=== PATIENT | male | born 1970 | race Hispanic/Latino ===

== ENCOUNTER 2024-04-26 09:51 | Day surgery (SDC) | payer OTHER ==
[2024-04-21 08:23] VITALS: BMI 25.1
[2024-04-26] MEDS ORDERED: PROPOFOL 20 ML ONE (11:22)
[2024-04-26] MEDS ORDERED: fentaNYL 50 mcg/mL 1 mL Vial ONE ×4 (11:25→13:57)
[2024-04-26] MEDS ORDERED: Midazolam HCl 2 mg/2 ml Vial ONE (12:20)
[2024-04-26] MEDS ORDERED: Acetaminophen 500 MG TAB ONE (12:21)
[2024-04-26] MEDS ORDERED: CEFAZOLIN 2 GM VIAL ONE (12:29)
[2024-04-26] MEDS ORDERED: Bupivacaine/Epinephrine 0.25% 30 ML VIAL ONE (12:29)
[2024-04-26] MEDS ORDERED: Esmolol 100 MG/10 ML VIAL ONE (12:53)
[2024-04-26] MEDS ORDERED: Dexamethasone 4 mg/ml Vial ONE (12:58)
[2024-04-26] MEDS ORDERED: PHENYLEPHRINE-NS 100 MCG/ML 10 ML SYRINGE ONE ×2 (13:03→13:17)
[2024-04-26] MEDS ORDERED: ePHEDrine Sulfate 50 MG/10 ML VIAL ONE (13:04)
[2024-04-26] MEDS ORDERED: Ondansetron PF 4 MG/2 ML Vial ONE (13:21)
[2024-04-26] MEDS ORDERED: SUGAMMADEX SODIUM 200 MG/2 ML VIAL ONE (13:23)
== END 2024-04-26 14:50 | disposition home or self-care (01) ==
LOC: CSHSDC 09:51
PROVIDERS: ATTEND Surgery
PROC: 0YU64JZ Supplement Left Inguinal Region with Synthetic Substitute, Percutaneous Endoscopic Approach (ICD-10-PCS; principal; 2024-04-26)
DX: K40.90 Unilateral inguinal hernia, without obstruction or gangrene, not specified as recurrent (principal); G43.909 Migraine, unspecified, not intractable, without status migrainosus; I10 Essential (primary) hypertension; Z79.899 Other long term (current) drug therapy; F17.200 Nicotine dependence, unspecified, uncomplicated
CPT/HCPCS: C1781; J1100; J2250; J2405; J2704; J3010